=== PATIENT | female | born 1950 | race Caucasian/White ===

== ENCOUNTER 2018-05-12 12:13 | Inpatient (IN) | payer MEDICARE, BC ==
[2018-05-12 12:56] LABS: #Eosinphils 0.5 thou/uL (0.0-0.7); #Lymphocytes 2.8 thou/uL (1.20-3.40); #Monocytes 0.7 thou/uL (0.11-0.59); %Basophils 0.2 % (0.0-1.0); %Eosinophils 4.7 % (0.0-10.0); %Lymphocytes 25.2 % (21.0-51.0); %Monocytes 6.3 % (0.0-10.0); %Neutrophils 63.7 % (42.0-75.0); Hemoglobin 14.7 g/dL (12.0-16.0); Mean Corpuscular HGB CONC 33.5 g/dL (32.0-36.0); Mean Corpuscular Hemoglobin 31.6 pg (27.0-31.0); Mean Corpuscular Volume 94.3 fL (78.0-98.0); Mean Platelet Volume 7.9 fL (7.4-10.4); Platelet Count 272 thou/uL (130-400); RBC Distribution Width 11.1 % (11.5-14.5); Red Blood Cell (RBC) Count 4.66 mill/uL (4.20-5.40); White Blood Cell (WBC) Count 10.9 thou/uL (4.8-10.8)
[2018-05-12 13:16] LABS: ALT (SGPT) 18 U/L (8-55); AST (SGOT) 19 U/L (5-34); Albumin 3.8 g/dL (3.4-4.8); Alkaline Phosphatase 85 U/L (40-150); Anion Gap 14 mmol/L (10-20); BUN (Urea Nitrogen) 17 mg/dL (9.8-20.1); Bilirubin, Total 0.5 mg/dL (0.2-1.2); CK (CPK) 100 U/L (29-168); Calc. Creatinine Clearance 0 mL/min (70-130); Calcium 9.4 mg/dL (7.8-10.44); Carbon Dioxide 23 mmol/L (23-31); Chloride 105 mmol/L (98-107); Estimated GFR-MDRD 65; Glucose 107 mg/dL (80-115); Potassium 3.8 mmol/L (3.5-5.1); Protein, Total 7.8 g/dL (6.0-8.3); Sodium 138 mmol/L (136-145)
[2018-05-12] MEDS ORDERED: Nitroglycerin 2% Ointment 1 INCH/1 GM Packet ONE (13:18)
[2018-05-12 13:21] LABS: CKMB 2.4 ng/mL (0-6.6); Troponin I Less than 0.010 ng/mL (< 0.028)
--- NOTE | 2018-05-12 13:29 | RAD ---
PORTABLE CHEST 1 VIEW: Date: 05/12/18 Time: 1229 hours HISTORY: Dyspnea. Cough. FINDINGS: Comparison made with exam of 01/09/14. The heart size is borderline. No lobar consolidation, pneumothoraces, gema pulmonary edema, or pleur al effusions are seen. IMPRESSION: No acute process. POS: [facility]
[2018-05-12] MEDS ORDERED: methylPREDNISolone Sod Succ/PF 125 MG/2 ML VIAL ONE (14:05)
[2018-05-12] MEDS ORDERED: cefTRIAXone\\ROCEPHIN 1 GM VIAL ONE (14:06)
[2018-05-12] MEDS ORDERED: Azithromycin 500 MG VIAL ONE (14:07)
--- NOTE | 2018-05-12 14:27 | ULT ---
LEFT LOWER EXTREMITY VENOUS DOPPLER ULTRASOUND: Date: 05/12/18 HISTORY: 68-year-old presents with a history of left lower extremity swelling. History of shortness of breath. FINDINGS: Multiple longitudinal and transverse images of the and left lower extremity venous system obtained us ing a multihertz linear array transducer. Real-time, color flow, and spectral waveform Doppler analys is demonstrates no evidence of acute or old clot seen in the left common femoral, superficial femoral , femoral profunda, popliteal, posterior tibial vein, and post-trifurcation vein. The left greater sa phenous vein is also patent. IMPRESSION: No evidence of left lower extremity deep venous thrombosis. POS: [facility]
--- NOTE | 2018-05-12 15:42 | HP ---
PRIMARY CARE PHYSICIAN: Gabino Lovelace M.D. REASON FOR ADMISSION: Acute hypoxic respiratory failure. HISTORY OF PRESENT ILLNESS: A 68-year-old female who has underlying history of hypertension who pres ented to emergency room for evaluation of dyspnea on exertion for about 2 months. Patient reports th at she was initially experiencing dyspnea on exertion. She was feeling intermittent wheezing. Whene landon she walks or do little faster activity, then she was getting out of breath. She has to slow down to catch up with her dyspnea. Initially, the patient reports that she started feeling a little bit better. She did not see her primary care physician. She did not put any medical attention. She was not taking any medication, but with little pace, she was getting better, but day by day, her conditi on was getting more worse. About 1 month ago, the patient's one family member moved to her house and she had 2 cats and she was putting some sprays in her home and that fume was exposed to patient as well. The patient tells me t hat since then her condition gotten more and more worse and she is feeling downhill. She is not able to lie down flat during nighttime, because of shortness of breath and even after walking a few steps , she gets out of breath. She can hear her own wheezing. She denies any upper respiratory infection s. She denies any sick exposures. She denies any viral infections. She denies any lower extremity pitting edema. She denies any chest pain, palpitation, but she feels sometimes tightness with the sh ortness of breath. She denies any unusual chemical exposure other than sprays at her home. She denies any recent travel . She denies any calf tenderness. She denies any pleurisy. She denies any cough productive of yell owish sputum. She denies any fever or chills. In the emergency room, the patient was evaluated and her routine blood test was completely unremarkab le. She had a lower extremity ultrasound which was also negative for any DVT. Her chest x-ray was a lso normal. Cardiac enzymes and BNP was also normal. In the emergency room, the patient's oxygen saturation was 88% on room air. She was wheezing all ove r her lung field. In the emergency room, she was treated with Rocephin, azithromycin, DuoNeb therapy , Solu-Medrol 125 mg, nitropatch was applied and DuoNeb therapy was given. Subsequently, we decided to keep this patient in hospital for further evaluation and treatment. ALLERGIES: FISH CONTAINING PRODUCTS, NAPROXEN and SHELLFISH. CURRENT HOME MEDICATIONS: Aspirin 81 mg p.o. daily, atenolol 75 mg p.o. daily, enalapril 10 mg twice daily, gabapentin 800 mg 4 times daily. REVIEW OF SYSTEMS: The following complete review of systems was negative, unless otherwise mentioned in the HPI or below: Constitutional: Weight loss or gain, ability to conduct usual activities. Skin: Rash, itching. Eyes: Double vision, pain. ENT/Mouth: Nose bleeding, neck stiffness, pain, tenderness. Cardiovascular: Palpitations, dyspnea on exertion, orthopnea. Respiratory: Shortness of breath, wheezing, cough, hemoptysis, fever or night sweats. Gastrointestinal: Poor appetite, abdominal pain, heartburn, nausea, vomiting, constipation, or diarr hea. Genitourinary: Urgency, frequency, dysuria, nocturia. Musculoskeletal: Pain, swelling. Neurologic/Psychiatric: Anxiety, depression. Allergy/Immunologic: Skin rash, bleeding tendency. Please see my HPI for pertinent positive and negative. All other review of systems reviewed and nega tive except as mentioned in the HPI. PAST MEDICAL HISTORY: Hypertension, dyslipidemia, chronic low back pain, obesity. PAST SURGICAL HISTORY: Back surgery x4 with laminectomy, cholecystectomy, appendicectomy, tubal liga tion. PAST PSYCHIATRIC HISTORY: Anxiety and depression. SOCIAL HISTORY: Patient lives at home. She is a former smoker. She quit smoking in 2011. No histo ry of current alcohol, tobacco or other illicit drug abuse. FAMILY HISTORY: No strong family history of premature coronary artery disease, stroke or cancer. EMERGENCY ROOM COURSE: Patient is given Rocephin, azithromycin, DuoNeb therapy, Solu-Medrol 125 mg, nitropatch. PHYSICAL EXAMINATION: VITAL SIGNS: Currently in the emergency room, blood pressure 161/78, pulse 80, respiratory rate 20, temperature 98.2, saturation 95% on room air, weight 127.1 kilograms. GENERAL: Patient is currently alert, awake, mild respiratory distress. HEENT: Head: Normocephalic, atraumatic. Eyes: Pupils round, reactive to light. Extraocular muscl e intact. ENT: Oropharynx within normal limits. Moist mucous membranes. No oral lesion, no pharyn geal erythema, no exudate. NECK: Supple, no JVD, no thyromegaly, no carotid bruit, no jugular venous distention. LUNGS: Bilateral end expiratory wheezing heard, no rales, no accessory muscles of respiration in use . CARDIAC: S1, S2 regular. No murmur, no gallop, no rub. ABDOMEN: Soft, obesity present. Bowel sounds present, nontender, nondistended. No organomegaly, no mass, no suprapubic tenderness. BACK: Unremarkable, no CVA tenderness. EXTREMITIES: Upper extremity, passive movement of all joints are normal. Lower extremity, bilatera l lower extremity nonpitting edema noted. Good distal pulsation. SKIN: No skin rash. HEMATOLOGIC: No lymphadenopathy. NEUROLOGIC: Nonfocal examination. IMAGING: EKG showing normal sinus rhythm, nonspecific ST-T changes, LVH. Chest x-ray showing cardio megaly, but no acute cardiopulmonary process. Ultrasound negative for DVT for left lower extremity. ASSESSMENT AND PLAN: 1. Dyspnea on exertion. This patient has a history of dyspnea for about 2 months. Currently, chest x-ray is not showing any congestion. Her BNP is normal. The patient's respiratory distress has got ten worse with exposure to fumes and cat. I am suspecting allergic reaction with hypersensitivity pn eumonitis versus acute bronchitis/acute asthmatic bronchitis which is gradually getting worse. 2. Acute hypoxic respiratory failure, likely due to problem #1. The patient will be given oxygen, w e are hoping that with the treatment of underlying asthmatic bronchitis, the patient's condition will improve and she will not need any oxygen therapy. 3. Acute asthmatic bronchitis. The patient will need admission because of hypoxia and gradual downh ill course, most likely allergen is the cat and fumes. The patient will need treatment with DuoNeb e very 4 hourly, Dulera 2 puffs inhalation b.i.d., Singulair 10 mg daily, Mucinex 600 mg twice daily, S mylene-Medrol 40 mg IV q.6 hourly, empiric antibiotic therapy with Rocephin 1 gram q.24 hours and Levaqu in 500 mg IV daily. Patient gets improvement and at that point, we will do pulmonary function test. 4. Hypertension. We will continue with enalapril 10 mg twice daily. We will change her atenolol to Coreg 6.25 mg p.o. b.i.d. We will add Imdur, amlodipine 10 mg p.o. daily for her blood pressure con trol. 5. Chronic low back pain. We will continue gabapentin 800 mg 4 times daily. 6. Obesity. Dietary education given. Healthy lifestyle measures discussed with the patient. 7. Deep venous thrombosis prophylaxis. Lovenox 40 mg subcu daily. 8. Gastrointestinal prophylaxis, Pepcid 20 mg p.o. b.i.d. 9. Anxiety and depression. Once we verify the patient's home medication, then we will consider star ting the medication as well. CODE STATUS: The patient is FULL CODE. The patient does not have any surrogate decision maker. Disposition plan based on clinical course. We are expecting patient's stay in hospital more than 2 m idnights. Plan of care discussed with the patient in detail.
[2018-05-12] MEDS ORDERED: Sodium Chloride 0.65% Nasal 44 ML BOT EA NARE PRN (16:18)
[2018-05-12] MEDS ORDERED: Loperamide HCl 2 MG CAP PO PRN (16:18)
[2018-05-12] MEDS ORDERED: Milk Of Magnesia 30 ML UDCUP PO PRN (16:18)
[2018-05-12] MEDS ORDERED: Artificial Tears 18 DROP/0.9 ML EA EYE PRN (16:18)
[2018-05-12] MEDS ORDERED: hydrALAZINE 20 MG/ML VIAL SLOW IVP PRN (16:18)
[2018-05-12] MEDS ORDERED: Acetaminophen 325 MG TAB PO PRN (16:18)
[2018-05-12] MEDS ORDERED: Mag-Al 1200 mg/1200 mg/30 ML UDCUP PO PRN (16:18)
[2018-05-12] MEDS ORDERED: Ondansetron ODT 4 MG TAB PO PRN (16:18)
[2018-05-12] MEDS ORDERED: Cyclobenzaprine 10 MG TAB PO PRN (16:18)
[2018-05-12] MEDS ORDERED: Senokot 8.6 MG TAB PO PRN (16:18)
[2018-05-12] MEDS ORDERED: Zolpidem Tartrate 5 MG TAB PO PRN (16:18)
[2018-05-12] MEDS ORDERED: Eucerin (Mineral Oil/Petrolatum,White) 30 gm Jar TOP PRN (16:18)
[2018-05-12] MEDS ORDERED: Diabetic Tussin 200 MG/10 ML UDCUP PO PRN (16:18)
[2018-05-12] MEDS ORDERED: Chloraseptic Spray 180 ml Bottle PO PRN (16:18)
[2018-05-12] MEDS ORDERED: Ondansetron HCl/PF 4 MG/2 ML Vial IVP PRN (16:18)
[2018-05-12] MEDS ORDERED: Loratadine 10 MG TAB PO PRN (16:18)
[2018-05-12] MEDS: Sodium Chloride 0.9% 1,000 ML IV SCH (16:51)
[2018-05-12] MEDS: Carvedilol 6.25 MG TAB PO SCH (16:52)
[2018-05-12] MEDS: Gabapentin 400 MG CAP PO SCH ×2 (16:52→20:18)
[2018-05-12 17:11] VITALS: BMI 39.4
[2018-05-12] MEDS: Mometasone/Formoterol 120 PUFF INHALER INH SCH (18:40)
[2018-05-12] MEDS: guaiFENesin ER 600 MG TAB PO SCH (20:18)
[2018-05-12] MEDS: Famotidine 20 MG TAB PO SCH (20:18)
[2018-05-12] MEDS: Montelukast Sodium 10 mg Tablet PO SCH (20:18)
[2018-05-13] MEDS: Sodium Chloride 0.9% 1,000 ML IV SCH ×3 (01:40→17:11)
[2018-05-13] MEDS ORDERED: Melatonin 3 MG TAB PO PRN (02:29)
[2018-05-13 05:14] LABS: #Basophils 0.1 thou/uL (0.0-0.2); #Lymphocytes 1.2 thou/uL (1.20-3.40); #Monocytes 0.1 thou/uL (0.11-0.59); #Neutrophils 4.7 thou/uL (1.40-6.50); %Basophils 2.4 % (0.0-1.0); %Eosinophils 0.2 % (0.0-10.0); %Lymphocytes 19.5 % (21.0-51.0); %Monocytes 0.9 % (0.0-10.0); Hemoglobin 14.1 g/dL (12.0-16.0); Mean Corpuscular HGB CONC 32.3 g/dL (32.0-36.0); Mean Corpuscular Hemoglobin 30.7 pg (27.0-31.0); Mean Platelet Volume 8.2 fL (7.4-10.4); Platelet Count 256 thou/uL (130-400); RBC Distribution Width 11.1 % (11.5-14.5); White Blood Cell (WBC) Count 6.1 thou/uL (4.8-10.8)
[2018-05-13 05:26] LABS: Anion Gap 16 mmol/L (10-20); BUN (Urea Nitrogen) 14 mg/dL (9.8-20.1); Calc. Creatinine Clearance 119 mL/min (70-130); Calcium 9.3 mg/dL (7.8-10.44); Carbon Dioxide 22 mmol/L (23-31); Chloride 105 mmol/L (98-107); Estimated GFR-MDRD 64; Glucose 167 mg/dL (80-115); Potassium 3.5 mmol/L (3.5-5.1); Sodium 139 mmol/L (136-145)
[2018-05-13] MEDS: Mometasone/Formoterol 120 PUFF INHALER INH SCH ×2 (06:34→19:10)
[2018-05-13] MEDS ORDERED: Amlodipine 10 MG TAB PO SCH (09:00)
[2018-05-13] MEDS: Carvedilol 6.25 MG TAB PO SCH ×2 (09:03→17:07)
[2018-05-13] MEDS: Enoxaparin Sodium 40 MG/0.4 ML SYRINGE SC SCH (09:03)
[2018-05-13] MEDS: Pramipexole Di-HCl 1 MG TAB PO SCH ×3 (09:03→20:20)
[2018-05-13] MEDS: guaiFENesin ER 600 MG TAB PO SCH ×2 (09:04→20:20)
[2018-05-13] MEDS: Multivit, Therapeutic 1 TAB PO SCH (09:04)
[2018-05-13] MEDS: Famotidine 20 MG TAB PO SCH ×2 (09:05→20:20)
[2018-05-13] MEDS: FLUoxetine HCl 20 MG CAP PO SCH (09:08)
--- NOTE | 2018-05-13 10:06 | PDOC.PN ---
- Subjective Encounter Start Date: 05/13/18 Encounter Start Time: 08:00 -: old records requested/rev today she feels better, less dyspnea, Patient seen and examined. No overnight events - Objective Resuscitation Status: Resuscitation Status FULL:Full Resuscitation MAR Reviewed: Yes Vital Signs & Weight: Vital Signs (12 hours) Temp Pulse Resp BP BP BP Pulse Ox 05/13/18 09:05 118/69 05/13/18 09:03 118/69 05/13/18 07:35 98.3 F 102 H 21 H 118/69 92 L 05/13/18 06:32 89 16 92 L 05/13/18 04:00 97.6 F 101 H 20 119/76 96 05/13/18 02:41 16 05/12/18 22:56 98.3 F 92 18 110/68 94 L 05/12/18 22:16 91 16 93 L Weight Weight 275 lb 1 oz I&O: 05/12/18 05/13/18 05/14/18 06:59 06:59 06:59 Intake Total 240 Balance 240 Result Diagrams: 05/13/18 04:14 05/13/18 04:14 Phys Exam - Physical Examination Constitutional: NAD HEENT: PERRLA, moist MMs, sclera anicteric Neck: no JVD, supple Respiratory: no rales, wheezing present Cardiovascular: RRR, no significant murmur, no rub Gastrointestinal: soft, non-tender, no distention, positive bowel sounds Musculoskeletal: no edema, pulses present left leg swollon more than right, Neurological: non-focal, normal sensation, moves all 4 limbs Psychiatric: normal affect, A&O x 3 Skin: no rash, normal turgor, cap refill <2 seconds Dx/Plan (1) Asthmatic bronchitis Code(s): J45.909 - UNSPECIFIED ASTHMA, UNCOMPLICATED Status: Acute (2) Dyspnea Code(s): R06.00 - DYSPNEA, UNSPECIFIED Status: Acute (3) Anxiety and depression Code(s): F41.9 - ANXIETY DISORDER, UNSPECIFIED; F32.9 - MAJOR DEPRESSIVE DISORDER, SINGLE EPISODE, UNSPECIFIED Status: Chronic (4) Chronic low back pain Code(s): M54.5 - LOW BACK PAIN; G89.29 - OTHER CHRONIC PAIN Status: Chronic (5) Dyslipidemia Code(s): E78.5 - HYPERLIPIDEMIA, UNSPECIFIED Status: Chronic (6) GERD (gastroesophageal reflux disease) Code(s): K21.9 - GASTRO-ESOPHAGEAL REFLUX DISEASE WITHOUT ESOPHAGITIS Status: Chronic (7) Hypertension Code(s): I10 - ESSENTIAL (PRIMARY) HYPERTENSION Status: Chronic (8) Obesity (BMI 30-39.9) Code(s): E66.9 - OBESITY, UNSPECIFIED Status: Chronic (9) Rhinovirus infection Code(s): B34.8 - OTHER VIRAL INFECTIONS OF UNSPECIFIED SITE Status: Acute - Plan cont current plan of care, continue antibiotics, respiratory therapy * home medication reconciled * continue duoneb, dulera, solumedrol and rocephin and levaquin * medication reviewed as below * symptomatic treatment * today check her room air oxygen saturation and Dc if more than 92% * ambulate as tolerated * do PFT before discharge if possible. Review of Systems - Review of Systems Constitutional: negative: fever, chills, sweats, weakness, malaise, other Eyes: negative: Pain, Vision Change, Conjunctivae Inflammation, Eyelid Inflammation, Redness, Other ENT: negative: Ear Pain, Ear Discharge, Nose Pain, Nose Discharge, Nose Congestion, Mouth Pain, Mouth Swelling, Throat Pain, Throat Swelling, Other Respiratory: Shortness of Breath, SOB with Excertion, Wheezing. negative: Cough , Dry, Hemoptysis, Pleuritic Pain, Sputum Cardiovascular: negative: chest pain, palpitations, orthopnea, paroxysmal nocturnal dyspnea, edema, light headedness, other Gastrointestinal: negative: Nausea, Vomiting, Abdominal Pain, Diarrhea, Constipation, Melena, Hematochezia, Other Genitourinary: negative: Dysuria, Frequency, Incontinence, Hematuria, Retention , Other Musculoskeletal: negative: Neck Pain, Shoulder Pain, Arm Pain, Back Pain, Hand Pain, Leg Pain, Foot Pain, Other Skin: negative: Rash, Lesions, Valeriano, Bruising, Other - Medications/Allergies Allergies/Adverse Reactions: Allergies Allergy/AdvReac Type Severity Reaction Status Date / Time Fish Containing Products Allergy Severe Anaphylaxis Verified 04/09/14 13:47 naproxen Allergy Anaphylaxis Verified 04/09/14 13:47 shellfish derived Allergy Anaphylaxis Verified 04/09/14 13:47 Medications: Current Medications Acetaminophen (Tylenol) 650 mg PO Q4H PRN PRN Reason: Headache/Fever or Pain Hydrocodone Bitart/Acetaminophen ([place] 5/325) 1 tab PO Q4H PRN PRN Reason: Moderate Pain (4-6) Al Hydroxide/Mg Hydroxide (Maalox) 30 ml PO Q6H PRN PRN Reason: Heartburn or Indigestion Albuterol/Ipratropium (Duoneb) 3 ml NEB [id number] PRN PRN Reason: SOB &/or Wheezing Albuterol/Ipratropium (Duoneb) 3 ml NEB [id number] [facility] Last Admin: 05/13/18 06:32 Dose: 3 ml Artificial Tears (Tears Naturale) 0 drop EA EYE PRN PRN PRN Reason: Dry Eyes Aspirin (Aspirin Chewable) 81 mg PO DAILY [facility] Last Admin: 05/13/18 09:03 Dose: 81 mg Atorvastatin Calcium (Lipitor) 10 mg PO [facility] Carvedilol (Coreg) 6.25 mg PO BID[facility] Last Admin: 05/13/18 09:03 Dose: 6.25 mg Cyclobenzaprine HCl (Flexeril) 10 mg PO TID PRN PRN Reason: Muscle Spasm Enalapril Maleate (Vasotec) 10 mg PO DAILY [facility] Last Admin: 05/13/18 09:05 Dose: 10 mg Enoxaparin Sodium (Lovenox) 40 mg SC 0900 [facility] Last Admin: 05/13/18 09:03 Dose: 40 mg Famotidine (Pepcid) 20 mg PO BID [facility] Last Admin: 05/13/18 09:05 Dose: 20 mg Fluoxetine HCl (Prozac) 40 mg PO DAILY [facility] Last Admin: 05/13/18 09:08 Dose: Not Given Guaifenesin (Mucinex) 600 mg PO Q12HR [facility] Last Admin: 05/13/18 09:04 Dose: 600 mg Guaifenesin (Robitussin Sf) 200 mg PO Q4H PRN PRN Reason: Cough Hydralazine HCl (Apresoline) 10 mg SLOW IVP Q4H PRN PRN Reason: Systolic BP > 180 Ceftriaxone Sodium 1 gm/ (Sodium Chloride) 100 mls @ 200 mls/hr IVPB 1400 [facility] Levofloxacin 500 mg/ Device 100 mls @ 100 mls/hr IVPB Q24HR [facility] Last Admin: 05/12/18 16:52 Dose: 100 mls Sodium Chloride (Normal Saline 0.9%) 1,000 mls @ 100 mls/hr IV .Q10H [facility] Last Admin: 05/13/18 01:40 Dose: Not Given Loperamide HCl (Imodium) 2 mg PO PRN PRN PRN Reason: Diarrhea/Loose Stools Loratadine (Claritin) 10 mg PO DAILYPRN PRN PRN Reason: Sinus Symptoms Magnesium Hydroxide (Milk Of Magnesium) 30 ml PO DAILYPRN PRN PRN Reason: Constipation Melatonin (Melatonin) 6 mg PO HS PRN PRN Reason: Insomnia Methylprednisolone Sodium Succinate (Solu-Medrol) 40 mg IVP Q6HR [facility] Last Admin: 05/13/18 04:11 Dose: 40 mg Mineral Oil/White Petrolatum (Eucerin Cream) 0 gm TOP BIDPRN PRN PRN Reason: Dry Skin Mometasone Furoate/Formoterol Fumar (Dulera 200 Mcg/5 Mcg Inhaler) 2 puff INH BID-RT [facility] Last Admin: 05/13/18 06:34 Dose: 2 puff Montelukast Sodium (Singulair) 10 mg PO QPM [facility] Last Admin: 05/12/18 20:18 Dose: 10 mg Multivitamins (Theragran) 1 tab PO DAILY [facility] Last Admin: 05/13/18 09:04 Dose: 1 tab Ondansetron HCl (Zofran Odt) 4 mg PO Q6H PRN PRN Reason: Nausea/Vomiting Ondansetron HCl (Zofran) 4 mg IVP Q6H PRN PRN Reason: Nausea/Vomiting Phenol (Chloraseptic [place] 180 Ml Bot) 0 ml PO PRN PRN PRN Reason: Sore Throat Pramipexole Dihydrochloride (Mirapex) 1 mg PO TID [facility] Last Admin: 05/13/18 09:03 Dose: 1 mg Senna (Senokot) 2 tab PO HSPRN PRN PRN Reason: Constipation Sodium Chloride ([place] Nasal [place] 0.65%) 0 ml EA NARE QIDPRN PRN PRN Reason: Nasal Congestion Trazodone HCl (Desyrel) 50 mg PO HS [facility]
[2018-05-13] MEDS: cefTRIAXone\\ROCEPHIN 1 GM in Sodium Chloride 0.9% 100 ML IVPB SCH (14:20)
[2018-05-13] MEDS: HYDROcodone/Acetaminophen 5/325 mg Tablet PO PRN (14:21)
[2018-05-13] MEDS: Montelukast Sodium 10 mg Tablet PO SCH (20:20)
[2018-05-13] MEDS: traZODone HCl 50 MG TAB PO SCH (20:20)
[2018-05-13] MEDS: Atorvastatin Calcium 10 MG TAB PO SCH (20:20)
[2018-05-14] MEDS: Sodium Chloride 0.9% 1,000 ML IV SCH ×2 (00:40→11:36)
[2018-05-14] MEDS: Mometasone/Formoterol 120 PUFF INHALER INH SCH ×2 (06:13→18:39)
[2018-05-14] MEDS: Enoxaparin Sodium 40 MG/0.4 ML SYRINGE SC SCH (08:28)
[2018-05-14] MEDS: Multivit, Therapeutic 1 TAB PO SCH (08:28)
[2018-05-14] MEDS: Carvedilol 6.25 MG TAB PO SCH ×2 (08:32→16:55)
[2018-05-14] MEDS: Pramipexole Di-HCl 1 MG TAB PO SCH ×3 (08:32→21:26)
[2018-05-14] MEDS: FLUoxetine HCl 20 MG CAP PO SCH ×2 (08:33→08:36)
[2018-05-14] MEDS: guaiFENesin ER 600 MG TAB PO SCH ×2 (08:33→21:26)
[2018-05-14] MEDS: Famotidine 20 MG TAB PO SCH ×2 (08:33→21:25)
[2018-05-14] MEDS: HYDROcodone/Acetaminophen 5/325 mg Tablet PO PRN ×2 (12:40→16:55)
[2018-05-14] MEDS: cefTRIAXone\\ROCEPHIN 1 GM in Sodium Chloride 0.9% 100 ML IVPB SCH (13:53)
--- NOTE | 2018-05-14 14:18 | PDOC.PN ---
- Subjective Encounter Start Date: 05/14/18 Encounter Start Time: 14:00 Subjective: f/u for asthmatic bronchitis and hypoxic resp failure. Overall feeling -: better but still requiring O2 @ 1.5L/min NC. - Objective Resuscitation Status: Resuscitation Status FULL:Full Resuscitation MAR Reviewed: Yes Vital Signs & Weight: Vital Signs (12 hours) Temp Pulse Resp BP BP Pulse Ox 05/14/18 11:45 98.3 F 100 20 158/85 H 93 L 05/14/18 10:19 100 93 L 05/14/18 08:33 146/76 H 05/14/18 08:32 146/76 H 05/14/18 08:00 91 L 05/14/18 07:25 98.2 F 103 H 22 H 146/76 H 91 L 05/14/18 06:11 105 H 14 90 L 05/14/18 04:00 98.1 F 102 H 18 143/84 H 94 L 05/14/18 02:24 102 H 12 95 Weight Weight 275 lb 1 oz I&O: 05/13/18 05/14/18 05/15/18 06:59 06:59 06:59 Intake Total 240 1680 Balance 240 1680 Result Diagrams: 05/13/18 04:14 05/13/18 04:14 Additional Labs: Microbiology 05/12/18 19:30 Nasopharyngeal swab Respiratory Panel (PCR) - Final 05/12/18 14:10 Venous blood - Right Hand Blood Culture - Preliminary NO GROWTH AT 48 HOURS 05/12/18 14:10 Venous blood - Right Hand Blood Culture - Preliminary NO GROWTH AT 48 HOURS Radiology Reviewed by me: Yes (Echo - EF 55%, mild-mod LAE) Phys Exam - Physical Examination Constitutional: NAD alert, responsive HEENT: PERRLA, sclera anicteric, oral pharynx no lesions Neck: no nodes, no JVD, supple, full ROM scattered wheezes and rhonchi S1, S2 Cardiovascular: RRR, no significant murmur, no rub, gallop Gastrointestinal: soft, non-tender, no distention, positive bowel sounds Musculoskeletal: no edema, pulses present Neurological: normal sensation, moves all 4 limbs Psychiatric: normal affect, A&O x 3 Deviation from normal: erythematous patch on dorsum or R foot, blanchable Skin: normal turgor, cap refill <2 seconds Dx/Plan (1) Acute respiratory failure with hypoxia Code(s): J96.01 - ACUTE RESPIRATORY FAILURE WITH HYPOXIA Status: Acute Comment: Continue O2 supplementation and wean as clinically indicated, ? home O2 requirement (2) Asthmatic bronchitis Code(s): J45.909 - UNSPECIFIED ASTHMA, UNCOMPLICATED Status: Acute Comment: Continue Dulera, Duonebs and Solumedrol, likely transition to Prednisone in 24h , start Omnicef 300mg BID (3) Chronic low back pain Code(s): M54.5 - LOW BACK PAIN; G89.29 - OTHER CHRONIC PAIN Status: Chronic Comment: PT evaluation for functional assessment (4) GERD (gastroesophageal reflux disease) Code(s): K21.9 - GASTRO-ESOPHAGEAL REFLUX DISEASE WITHOUT ESOPHAGITIS Status: Chronic (5) Hypertension Code(s): I10 - ESSENTIAL (PRIMARY) HYPERTENSION Status: Chronic Qualifiers: Hypertension type: essential hypertension Qualified Code(s): I10 - Essential (primary) hypertension Comment: Continue Coreg and Enalapril (6) Obesity (BMI 30-39.9) Code(s): E66.9 - OBESITY, UNSPECIFIED Status: Chronic - Plan continue antibiotics, PT/OT, social services aide, respiratory therapy, out of bed/ ambulate Stable currently -: Saline lock IVF's -: D/C Levaquin and Rocephin -: Start Omnicef 300mg BID -: OOB/ambulate with PT * Likely home in 24
[2018-05-14] MEDS: Cefdinir 300 MG CAP PO SCH (21:25)
[2018-05-14] MEDS: Atorvastatin Calcium 10 MG TAB PO SCH (21:26)
[2018-05-14] MEDS: traZODone HCl 50 MG TAB PO SCH (21:26)
[2018-05-14] MEDS: Montelukast Sodium 10 mg Tablet PO SCH (21:26)
[2018-05-15] MEDS: HYDROcodone/Acetaminophen 5/325 mg Tablet PO PRN ×2 (00:32→08:32)
[2018-05-15] MEDS: Mometasone/Formoterol 120 PUFF INHALER INH SCH (06:37)
[2018-05-15] MEDS: Cefdinir 300 MG CAP PO SCH (08:24)
[2018-05-15] MEDS: Pramipexole Di-HCl 1 MG TAB PO SCH ×2 (08:25→15:54)
[2018-05-15] MEDS: FLUoxetine HCl 20 MG CAP PO SCH (08:26)
[2018-05-15] MEDS: guaiFENesin ER 600 MG TAB PO SCH (08:26)
[2018-05-15] MEDS: Multivit, Therapeutic 1 TAB PO SCH (08:27)
[2018-05-15] MEDS: Famotidine 20 MG TAB PO SCH (08:27)
[2018-05-15] MEDS: Carvedilol 6.25 MG TAB PO SCH ×2 (08:28→15:54)
[2018-05-15] MEDS: Enoxaparin Sodium 40 MG/0.4 ML SYRINGE SC SCH (08:29)
[2018-05-15 11:15] VITALS: TEMP 982
--- NOTE | 2018-05-15 13:43 | DIS ---
DATE OF ADMISSION: 05/12/2018 DATE OF DISCHARGE: 05/15/2018 DISCHARGE DIAGNOSES: 1. Acute hypoxemic respiratory failure secondary to #2. 2. Asthmatic bronchitis. 3. Chronic low back pain, stable. 4. Gastroesophageal reflux disease. 5. Hypertension. 6. Obesity. CONSULTATIONS: None. PERTINENT LABORATORY DATA AND IMAGING DATA: Complete metabolic profile within normal limits. BNP 14 .3. CBC showed a white blood cell count ranging between 6.1-10.9. Blood cultures x2 dated 8 showed no growth at 48 hours. Respiratory panel dated 05/12/2018 positive for rhinovirus. Left lo wer extremity venous Doppler study dated 05/12/2018 showed no evidence for DVT. Portable chest x-ray dated 05/12/2018 showed no acute cardiopulmonary process. A 2D transthoracic echocardiogram dated showed ejection fraction of 55%-60%. Mild to moderate left atrial enlargement. HOSPITAL COURSE: Patient was admitted to the medical floor after initially presenting with dyspnea o n exertion with associated hypoxemia. The patient was diagnosed with asthmatic bronchitis and placed on bronchodilator therapy as well as IV Solu-Medrol. The patient was slow to clinically improve wit h pulmonary supportive measures, requiring DuoNeb therapy in conjunction with Dulera, oxygen suppleme ntation and IV antibiotics. Patient underwent respiratory virus panel showing rhinovirus as stated p reviously. The patient continued on IV antibiotic therapy, transitioning to oral Omnicef after stabi lization. The patient was noted with oxygen requirement of 2 liters per minute by nasal cannula and will receive a home oxygen prescription at discharge. The patient was noted with room air O2 saturat ions at rest between 86%-89%. Overall, patient did remain clinically stable, tolerating regular oral intake with stable vital signs. I have examined the patient at the time of discharge and discussed followup instructions. The patient verbalizes understanding and agreement and ready for discharge . DISCHARGE MEDICATIONS: 1. ProAir HFA 2 inhalations t.i.d. p.r.n. 2. Tenormin 50 mg p.o. daily. 3. Enalapril 10 mg p.o. daily. 4. Pepcid 40 mg p.o. daily. 5. Prozac 40 mg p.o. daily. 6. Lovastatin 40 mg p.o. daily. 7. Multivitamin 1 tab p.o. daily. 8. Omeprazole 40 mg p.o. daily. 9. Mirapex 1 mg p.o. t.i.d. 10. Trazodone 50 mg p.o. at bedtime. 11. Omnicef 300 mg p.o. b.i.d. x7 days. 12. DuoNeb 3 mL nebulized q.6 hours p.r.n. 13. Dulera 200/5 mcg 2 puffs inhaled b.i.d. 14. Prednisone 10 mg 2 tabs p.o. b.i.d. x3 days, followed by 3 tabs p.o. daily x 3 days, followed by 2 tabs p.o. daily x 3 days, followed by 1 tab p.o. daily x3 days. FOLLOWUP: The patient will follow up with Dr. Gabino Lovelace within 7 days of discharge. CONDITION ON DISCHARGE: Stable. ACTIVITY: Ad noni. SPECIAL INSTRUCTIONS: The patient will receive home health services through [facility] after discharge. The patient will continue on home oxygen at 2 liters per minute by nasal cannula continu ously. DIET: Heart healthy. CODE STATUS: FULL. DISPOSITION: Home with [facility] on 05/15/2018. Total time in preparing and coordinating discharge is 36 minutes.
[2018-05-15 15:55] VITALS: BP 178/90
== END 2018-05-15 16:43 | disposition home or self-care (01) | DRG 189 ==
LOC: ERS 12:13 → T4-A 14:09
PROVIDERS: ADMIT Internal Medicine; ATTEND Internal Medicine
DX: J96.01 Acute respiratory failure with hypoxia (principal); J45.909 Unspecified asthma, uncomplicated; I10 Essential (primary) hypertension; E78.5 Hyperlipidemia, unspecified; M54.9 Dorsalgia, unspecified; G89.29 Other chronic pain; E66.9 Obesity, unspecified; Z87.891 Personal history of nicotine dependence; B34.8 Other viral infections of unspecified site; Z88.8 Allergy status to other drugs, medicaments and biological substances; Z91.013 Allergy to seafood; Z79.899 Other long term (current) drug therapy; Z79.82 Long term (current) use of aspirin; F32.9 Major depressive disorder, single episode, unspecified; F41.9 Anxiety disorder, unspecified; Z68.39 Body mass index [BMI] 39.0-39.9, adult; K21.9 Gastro-esophageal reflux disease without esophagitis
CPT/HCPCS: 36415; 71045; 80048; 80053; 82553; 83880; 84484; 85025; 87040; 87633; 87798; 93005; 93306; 94640; 96365; 96367; 96375; A4216; G8978-GP-CL; G8979-GP-CK; J0456; J0696; J1650; J1956; J2920; J2930; J7050; J7620

== ENCOUNTER 2019-07-06 16:00 | Inpatient (IN) | payer MEDICARE, BC ==
[~2019-07-06 16:00] MED LIST: Glycopyrrolate 0.2 MG/ML 5 ML SYRINGE ONE; Iopamidol-370 76% 500 ML 1 ML ONE; Lidocaine 1% PF 5 ML VIAL ONE; Ondansetron PF 4 MG/2 ML Vial ONE; PHENYLEPHRINE-NS 100 MCG/ML 10 ML SYRINGE ONE; PROPOFOL 200 MG/20 ML VIAL ONE; Rocuronium Bromide 10 MG/ML (10ML VIAL) ONE; Succinylcholine Chloride 20 MG/ML 10 ml SYRINGE FS ONE
--- NOTE | 2019-07-06 16:39 | RAD ---
XR Chest 1 View Portable History: Chills. Malaise. Tachypnea Comparison: Radiograph 05/12/2018 Findings: Lungs are clear. No pneumothorax. No effusion. No acute osseous abnormality. Impression: No acute intrathoracic abnormality.
[2019-07-06 17:20] LABS: ALT (SGPT) 19 U/L (8-55); AST (SGOT) 23 U/L (5-34); Albumin 3.7 g/dL (3.4-4.8); Alkaline Phosphatase 90 U/L (40-110); Anion Gap 15 mmol/L (10-20); BUN (Urea Nitrogen) 15 mg/dL (9.8-20.1); Bilirubin, Total 0.7 mg/dL (0.2-1.2); Calc. Creatinine Clearance 0 mL/min (70-130); Calcium 9.2 mg/dL (7.8-10.44); Carbon Dioxide 25 mmol/L (23-31); Chloride 106 mmol/L (98-107); Estimated GFR-MDRD 74; Globulin 3.8 g/dL (2.4-3.5); Glucose 124 mg/dL (80-115); Potassium 3.8 mmol/L (3.5-5.1); Protein, Total 7.5 g/dL (6.0-8.3); Sodium 142 mmol/L (136-145)
[2019-07-06 17:34] LABS: #Eosinphils 0.1 thou/uL (0.0-0.7); #Lymphocytes 2.6 thou/uL (1.20-3.40); #Monocytes 0.9 thou/uL (0.11-0.59); #Neutrophils 9.6 thou/uL (1.40-6.50); %Basophils 0.3 % (0.0-1.0); %Eosinophils 1.1 % (0.0-10.0); %Lymphocytes 19.3 % (21.0-51.0); %Neutrophils 72.3 % (42.0-75.0); Mean Corpuscular HGB CONC 34.5 g/dL (32.0-36.0); Mean Corpuscular Hemoglobin 32.8 pg (27.0-31.0); Mean Corpuscular Volume 95.1 fL (78.0-98.0); Platelet Count 293 thou/uL (130-400); RBC Distribution Width 11.8 % (11.5-14.5); Red Blood Cell (RBC) Count 4.57 mill/uL (4.20-5.40); White Blood Cell (WBC) Count 13.2 thou/uL (4.8-10.8)
[2019-07-06] MEDS ORDERED: Azithromycin 500 MG VIAL ONE (17:55)
[2019-07-06] MEDS ORDERED: cefTRIAXone\\ROCEPHIN 2 GM VIAL ONE (17:55)
[2019-07-06 17:59] LABS: Bacteria/HPF 4+ HPF (None Seen); Bilirubin Negative (Negative); Blood, Urine Negative (Negative); Clarity Turbid (Clear); Glucose, Urine (Dipstick) Normal (Negative); Leukocyte 250 Leu/uL (Negative); Nitrite Negative (Negative); Protein, Urine (Dipstick) 30 mg/dL (Neg-Trace); RBC/HPF 0-3 HPF (0-3); Squamous Epithelial 0-3 HPF (0-3); Urobilinogen Normal mg/dL (Less than 2); WBC/HPF 21-50 HPF (0-3)
--- NOTE | 2019-07-06 18:59 | CT ---
CTA Angio Chest W WO Con History: Dyspnea and tachycardia. Comparison: Radiograph same day Findings: CT angiogram chest performed after the intravenous administration of contrast. 3-D renderin g provided. There is a nodule in the left lobe of thyroid. The esophagus is distended with fluid and ingested mat erial. Evaluation for distal embolism is limited due to the delayed phase of contrast. No proximal segmental pulmonary arterial filling defect. No pericardial effusion. Limited evaluation of the upper abdomen is unremarkable. Mild atelectasis in the lung bases. No pneumothorax. No effusion. No airspace consolidation. There is a right middle lobe pulmonary nodule measuring 4 mm. Impression: 1. Within the limits of this exam no pulmonary embolism. 2. Marked and distention of the fluid and debris-filled esophagus. Nonemergent endoscopic evaluation recommended to evaluate for obstructive process. 3. No evidence for pneumonia.
[2019-07-06] MEDS ORDERED: hydrALAZINE 20 MG/ML VIAL ONE (20:16)
[2019-07-07] MEDS ORDERED: SUGAMMADEX SODIUM 500 MG/5 ML VIAL ONE ×2 (00:29)
[2019-07-07] MEDS ORDERED: Ondansetron HCl/PF 4 MG/2 ML Vial IVP PRN (00:46)
[2019-07-07] MEDS ORDERED: HYDROcodone/Acetaminophen 5/325 mg Tablet PO PRN ×2 (01:55)
[2019-07-07] MEDS ORDERED: Sodium Chloride 0.9% 1,000 ML IV SCH (01:55)
[2019-07-07] MEDS ORDERED: Ondansetron ODT 4 MG TAB SL PRN (01:55)
[2019-07-07] MEDS ORDERED: Ondansetron PF 4 MG/2 ML Vial IVP PRN (01:55)
[2019-07-07] MEDS ORDERED: Acetaminophen 325 MG TAB PO PRN (01:55)
[2019-07-07] MEDS: Dextrose 5 % And 0.9 % NaCl 1,000 ML IV SCH ×2 (02:19→15:52)
--- NOTE | 2019-07-07 02:27 | HP ---
PRIMARY CARE PHYSICIAN: The patient currently does not have a primary care physician. CHIEF COMPLAINT: Choking spell. HISTORY OF PRESENT ILLNESS: The history of present illness is very limited as the patient is being seen in the PACU, and she says that she is a bit groggy and cannot really remember all the details but Ms. Gonzalez is a 69-year-old female, who has a history of hypertension and depression. She says that she has been having difficulty with swallowing for few weeks now and earlier on the day of admission, she had a fairly severe choking episode and then following this was short of breath. For this reason, she came to the emergency room for evaluation. Chest x-ray was done, which was essentially negative. Then, a CT angiogram was performed and it demonstrated no evidence of PE nor infiltrate, but a severely dilated esophagus and for this reason, road contractor was consulted and she was taken emergently to upper endoscopy, where she had a procedure to disimpact the esophagus, which took approximately 3 hours and she is being admitted for observation following this. Other than that, the patient says she has a little bit of discomfort in her abdomen and chest, but otherwise no complaints. She denies feeling short of breath. No nausea, no vomiting, and no other symptoms. REVIEW OF SYSTEMS: Mostly unobtainable due to the patient being groggy. PAST MEDICAL HISTORY: Taken from prior records and was gone over with the patient and includes past medical history significant for hypertension, mitral valve disease, and depression. PAST SURGICAL HISTORY: She has had back surgery x4, appendectomy, cholecystectomy, and bilateral tubal ligation. ALLERGIES: INCLUDE NAPROSYN AND SHELLFISH. SOCIAL HISTORY: She is a former smoker. Denies any alcohol use. She is , has one son, Too, who is her surrogate decision maker. She would like to be a full code. FAMILY HISTORY: Significant for a sister, who had aneurysm. MEDICATIONS: Include, 1. Aspirin. 2. Enalapril 10 mg twice daily. 3. Gabapentin 800 mg q.i.d. PHYSICAL EXAMINATION: GENERAL: She is alert and oriented. She appears to be in no acute distress. VITAL SIGNS: Blood pressure initially was 200 systolic and it has come down to 179/93, heart rate 108, and respiratory rate of 32. HEENT: Pupils are equal, round, and reactive. Extraocular muscles are intact. Her sclerae are anicteric. Throat, no erythema. No exudates. NECK: No adenopathy, no bruits. LUNGS: She has some coarse breath sounds, but no wheezing or rales. CARDIOVASCULAR: Heart tones are bit distant, but she has a normal S1 and S2. There is no S3 or S4. No murmurs, clicks, or rubs. ABDOMEN: Obese. It is soft, nontender, and nondistended. Positive for bowel sounds. No rebound. No guarding. No organomegaly. EXTREMITIES: She has no edema. No calf tenderness. No joint effusions. NEUROLOGIC: Nonfocal. SKIN AND INTEGUMENT: No skin changes. No rash. LABORATORY DATA: White blood cell count is 13.2, hemoglobin is 15, hematocrit is 43.4, and platelet count is 293. Sodium 142, potassium 3.8, chloride is 106, CO2 is 25, BUN of 15, creatinine 0.77, and glucose is 124. Lactic acid 1.2. Liver function tests are negative. Urinalysis shows trace ketones, 250 leukocyte esterase, wbc's are 21 to 50, and bacteria 4+. ASSESSMENT: 1. This is a 69-year-old female, who presented to the emergency room with a choking episode and was found to have a food impaction in her esophagus, which was fairly severe, requiring over 3 hours to disimpact. She will be admitted to telemetry and started on empiric antibiotics to cover for aspiration. She will be placed on IV proton pump inhibitor as well as Solu-Medrol. Due to the length of time that required to disimpact the esophagus, there could be some esophageal wall irritation. 2. Hypertension. Her blood pressure is elevated. This could be due to her symptomatology and the recent procedure. Since she is n.p.o., we will be treating her with p.r.n. IV medications. 3. She will be placed on DVT and GI prophylaxis and further recommendations to follow. Job ID: [id number]
[2019-07-07] MEDS: Piperacillin/Tazobactam 3.375 GM in Sodium Chloride 0.9% 100 ML IVPB SCH ×4 (03:00→21:15)
[2019-07-07 03:13] VITALS: BMI 39.2
[2019-07-07] MEDS: hydrALAZINE 20 MG/ML VIAL SLOW IVP PRN (04:19)
[2019-07-07 05:40] LABS: #Lymphocytes 2.3 thou/uL (1.20-3.40); #Monocytes 0.6 thou/uL (0.11-0.59); %Basophils 0.1 % (0.0-1.0); %Eosinophils 0.1 % (0.0-10.0); %Lymphocytes 16.8 % (21.0-51.0); %Monocytes 4.2 % (0.0-10.0); %Neutrophils 78.8 % (42.0-75.0); Hemoglobin 13.7 g/dL (12.0-16.0); Mean Corpuscular HGB CONC 34.2 g/dL (32.0-36.0); Mean Corpuscular Hemoglobin 32.4 pg (27.0-31.0); Mean Corpuscular Volume 94.5 fL (78.0-98.0); Platelet Count 298 thou/uL (130-400); RBC Distribution Width 11.9 % (11.5-14.5); Red Blood Cell (RBC) Count 4.22 mill/uL (4.20-5.40); White Blood Cell (WBC) Count 13.9 thou/uL (4.8-10.8)
[2019-07-07 05:58] LABS: Anion Gap 11 mmol/L (10-20); BUN (Urea Nitrogen) 12 mg/dL (9.8-20.1); Calc. Creatinine Clearance 136 mL/min (70-130); Calcium 8.4 mg/dL (7.8-10.44); Carbon Dioxide 23 mmol/L (23-31); Chloride 110 mmol/L (98-107); Estimated GFR-MDRD 76; Glucose 141 mg/dL (80-115); Potassium 3.2 mmol/L (3.5-5.1); Sodium 141 mmol/L (136-145)
[2019-07-07] MEDS: methylPREDNISolone Sod Succ 40 MG VIAL IVP SCH ×3 (06:03→21:17)
[2019-07-07] MEDS: Enoxaparin Sodium 40 MG/0.4 ML SYRINGE SC SCH (08:37)
[2019-07-07] MEDS ORDERED: Potassium Chloride 40 MEQ in Sodium Chloride 0.9% 250 ML 250 ML IVPB SCH (08:45)
[2019-07-07] MEDS ORDERED: Pantoprazole 40 MG VIAL IVP SCH (09:00)
--- NOTE | 2019-07-07 10:52 | CON ---
DATE OF CONSULTATION: 07/06/2019 REASON FOR CONSULTATION: Dysphagia, food impaction of the esophagus. HISTORY OF PRESENT ILLNESS: Ms. Belem Gonzalez is a very pleasant 69-year-old female with history of esophageal stricture from before. The patient has had a food impaction more than 10 years ago. She has had esophageal stricture off and on with dysphagia to solid food. She has seen Dr. Barnett at [facility] 2 years ago and underwent EGD and dilation. She had done well after dilation. She has mild acid reflux off and on. The patient was eating yesterday and the food got hung up in the esophagus. She tried drinking water, but the water kept coming up. She is also spitting up some mucus. She was unable to take any liquids and she came to the ER almost 24 hours after the food impaction. In the ER, she had CAT scan and CAT scan does show meat impaction of the esophagus at the mid esophageal level. The patient actually appears very comfortable. She is not coughing or choking and not spitting of any mucus. She had no painful swallowing. Does not have any chest pain. The patient has been seen by Dr. Monge and had an evaluation done. There was some question of some pulmonary infiltrate, possible bronchitis, and plan is being made to hospitalize the patient. The patient has no relevant history. ALLERGIES: NONE. SOCIAL HISTORY: The patient is a past smoker; however, she stopped more than 10 years ago. Does not drink alcohol. No history of drug abuse. MEDICAL ILLNESSES: 1. Hypertension. 2. Chronic acid reflux. Denies history of any heart disease. No diabetes. No chronic lung disease from before. She has no family doctor, does not see anybody at the present time. PAST SURGICAL HISTORY: 1. Back surgery more than 40 years ago. 2. Appendectomy. 3. Cholecystectomy. 4. EGD and dilation 2 years ago. FAMILY HISTORY: Mother had breast cancer. No family history of any other cancer. No COPD in the family. No diabetes. No stroke. No heart disease. MEDICATIONS: Reviewed. REVIEW OF SYSTEMS: A 10-point system reviewed. HEAD: No chronic headache. No dizziness. EYES: No impaired vision. No diplopia. EARS: No hearing loss. No discharge. No bleeding. NOSE: No nosebleed. THROAT: No sore throat. No painful swallowing. NECK: No stiffness or pain. LUNGS: Has coughing and spitting mucus yesterday. No fever. No hemoptysis. No dyspnea. CARDIOVASCULAR: No chest pain. No palpitation. No dyspnea, orthopnea, or PND. GI: No abdominal pain. No nausea, no vomiting. GENITOURINARY: No hematuria. No dysuria. MUSCULOSKELETAL: Not known. NEUROENDOCRINE: Not known. NEUROPSYCHIATRY: Not known. PHYSICAL EXAMINATION: GENERAL: She is obese, appears comfortable. VITAL SIGNS: Pulse is 109, blood pressure 130/78. HEENT: Conjunctivae are clear. NECK: Supple. No adenitis or thyromegaly noted. CARDIOVASCULAR: First and second heart sounds normal. LUNGS: Have few scattered rhonchi. ABDOMEN: Soft. Abdomen is nondistended. Abdomen is nontender. No organomegaly. No masses. Bowel sounds normal. EXTREMITIES: Reveal no edema. LABORATORY DATA: CBC; WBC 13,200, hemoglobin 15, hematocrit 43.4, MCV 92.1, platelet count 293,000, polymorphs 72, lymphocytes 19. Chem 7 is normal. BUN is 15, creatinine 0.77, glucose 124, and calcium 9.2. Liver function tests are normal. Albumin is 3.7, globulin 3.8. The patient had a chest CAT scan, CT angiogram. There is no evidence of pulmonary embolism. She has markedly distant esophageal lumen with debris. There is no pneumonia. Chest x-ray is actually normal. IMPRESSION: 1. A 69-year-old female, who presents with dysphagia, food impaction. She has similar episodes in the past. She underwent EGD and dilation about [address] Barnett. The patient comes in with complaint of food impaction. 2. Obesity. 3. Hypertension. 4. Previous appendectomy and cholecystectomy. 5. Previous back surgery. PLAN: EGD and removal of foreign body. I did see the patient in the ER, I explained to her about the procedure in detail. I explained that she will put to sleep and a scope will be passed down to the esophagus to try to take it out. Risks like bleeding, perforation, aspiration, and sepsis explained. She fully understood the procedure. I will plan for EGD and removal of foreign body as soon as possible tonight. Job ID: [id number]
[2019-07-07] MEDS ORDERED: MD-Gastroview 120 ML BOT ONE (11:40)
[2019-07-07] MEDS ORDERED: Metoprolol Tartrate 5 MG/5 ML VIAL IVP SCH (12:00)
--- NOTE | 2019-07-07 14:01 | OP ---
DATE OF PROCEDURE: 07/06/2019 STARTING TIME: 9:15 p.m., 07/06/2019. PROCEDURE COMPLETED: 12:15 a.m., 07/07/2019. DURATION OF PROCEDURE: 3 hours. PREOPERATIVE DIAGNOSIS: Foreign body impaction in esophagus. POSTOPERATIVE DIAGNOSES: 1. Foreign body, meat piece impaction in esophagus. 2. Esophageal stricture at the distal esophagus. PROCEDURE PERFORMED: Esophagogastroduodenoscopy. FINDINGS: At the EGD, the patient was found to have entire esophagus full of meat starting just below the GE junction and going just below the upper esophageal sphincter and going all the way to the lower esophagus. It was very time consuming in the patient's procedure. It took approximately 2 to 3 hours to open the esophageal lumen and clear the meat piece. DESCRIPTION OF PROCEDURE: The patient was intubated and was given sedation by Anesthesia Department. A bite block was placed. A Pentax video gastroscope under direct vision passed down the oropharynx, past the upper esophageal sphincter into the esophagus. The patient had a very large piece of soggy meat right below the esophageal sphincter. The patient appears to have a meat piece filling the entire esophagus. The meat is very soggy and difficult really to grasp the whole piece. We then tried to exacerbate and break it into multiple fibers. Initially, multiple passes were made to try to get the meat. Several meat pieces were removed. Subsequently, we realized it is going to be really time consuming and I had to pass the tube over the scope into the esophagus. The tube would easily go back and forth multiple times. A tripod forceps was used to remove bit by bit. At the end of the procedure, most of the meat was debulked. Subsequently, I was able to push what was left into the stomach with mild resistance. Also, at one time, an attempt was made to put a balloon just pass the impaction and tried to release the balloon to replete out which was not successful. There was some small piece of meat left and it appears to pass by itself. I was able to get the scope into the stomach and the patient appears to have had a stricture at the distal esophagus of the GE junction and the end of the procedure did include an examination and I do not see any crepitus or subcutaneous emphysema. The stomach decompressed and tube removed. I did talk to Dr. Frank Terry, the hospitalist to admit the patient for observation overnight. RECOMMENDATIONS: 1. We will keep her n.p.o. 2. Start her on IV fluids. 3. Consider broad spectrum antibiotics and also possibly Solu-Medrol 20 mg every 8 hours because the patient would have severe edema of the vocal cords and possibly pain because of multiple passes and large . Job ID: [id number]
--- NOTE | 2019-07-07 14:45 | PRG ---
DATE OF SERVICE: 07/07/2019 SUBJECTIVE: This is a 69-year-old female seen last night in the ER because of food impaction in esophagus. The patient ate some meat on Sunday, but did not come back until Sunday night. She underwent EGD. She had a large amount of food bolus in the esophagus. The entire esophagus was filled with soft meat. meat piece. She had done well overnight and she has no complaint except for some sore throat and painful swallowing. She is n.p.o. She offers no complaints. She is on broad-spectrum antibiotic and also tissue swelling. PHYSICAL EXAMINATION: GENERAL: She is obese, appears comfortable. Afebrile. Pulse is 110 and blood pressure is 150/93. HEENT: Conjunctivae are clear. NECK: Supple. No crepitus or any subcutaneous emphysema noted. CARDIOVASCULAR: First and second heart sounds are normal. LUNGS: Clear to auscultation. ABDOMEN: Soft. Abdomen is nontender. No organomegaly. No masses. LABORATORY DATA: WBC 13,900, hemoglobin 13.7, hematocrit 39.9, MCV 94.5, platelet count is 290,000, polymorphs 78, lymphocytes 16. Chemistry panel normal except for glucose of 141 and potassium 3.2. PLAN: Gastrografin swallow today. If there is no leak or any other problems, start feeding later on today. Dr. Tai Lubin is covering me from today until 22 of July. If there are any questions, please contact Dr. Tai Lubin. Job ID: [id number]
--- NOTE | 2019-07-07 15:06 | RAD ---
Esophagram HISTORY: Esophageal stricture with dilatation. Evaluate for leak. FINDINGS: Single column Gastrografin contrast evaluation of the esophagus. Contrast passed through th e esophagus without obstruction or leak. There were nonpropulsive tertiary type contractions of the esophagus with diminished primary and seco ndary peristalsis. No persistent filling defect. Fluoroscopy time 0.8 minutes. IMPRESSION: No evidence of esophageal leak or obstruction. Severe presbyesophagus.
[2019-07-07] MEDS ORDERED: Mometasone/Formoterol 120 PUFF INHALER INH PRN (16:21)
--- NOTE | 2019-07-07 16:33 | PDOC.HOSPP ---
- Subjective Encounter Date: 07/07/19 Encounter Time: 16:28 Subjective: 69 y/o female with GERD, esophageal stricture s/p prior food impaction who presentated to the ED with food imparction and inability to swallow associated with SOB. Reportedly has been having difficulty swallowng in the last 4 weeks prior to the imparction. Had a very difficult and prolonged disimparction hence admitted to ICU due to concerns for airway edema. Feeling better. Esophagogram showed no leak and she was restarted on liquid diet. - Objective Vital Signs & Weight: Vital Signs (12 hours) Temp Pulse Pulse BP Pulse Ox Pulse Ox Pulse Ox 07/07/19 15:17 98.6 F 07/07/19 14:54 115 H 114 H 149/94 H 100 99 07/07/19 11:14 97.3 F L 07/07/19 08:00 99 07/07/19 07:16 98.6 F Weight Admit Weight 273 lb 1 oz Weight 273 lb 1 oz Most Recent Monitor Data Heart Rate from ECG 113 NIBP 177/113 NIBP BP-Mean 134 Respiration from ECG 22 SpO2 100 I&O: 07/06/19 07/07/19 07/08/19 06:59 06:59 06:59 Intake Total 343 Balance 343 Result Diagrams: 07/07/19 05:21 07/07/19 05:21 Additional Labs: Accuchecks 07/06/19 18:04 POC Glucose 110 Hospitalist ROS - Medication Medications: Active Medications Generic Name Dose Route Start Last Admin Trade Name Freq PRN Reason Stop Dose Admin Enoxaparin Sodium 40 mg 07/07/19 09:00 07/07/19 08:37 Lovenox SC 40 mg 0900 JESUSITA Administration Hydralazine HCl 10 mg 07/07/19 02:00 07/07/19 04:19 Apresoline SLOW IVP 10 mg Q4H PRN Administration SBP > 180 and HR < 70 Piperacillin Sod/Tazobactam 100 mls @ 200 mls/hr 07/07/19 03:00 07/07/19 15: 52 Sod 3.375 gm/ Sodium Chloride IVPB 100 mls 0300,0900,1500,2100 JESUSITA Administration Methylprednisolone Sodium Succinate 20 mg 07/07/19 06:00 07/07/19 15:52 Solu-Medrol IVP 20 mg Q8HR JESUSITA Administration - Exam General Appearance: awake alert Eye: anicteric sclera ENT: normocephalic atraumatic Neck: supple, symmetric, no JVD Heart: RRR Respiratory: no wheezes, no rales, no ronchi Gastrointestinal: soft, non-tender, non-distended, normal bowel sounds Gastrointestinal - other findings: obese Extremities: no cyanosis, no edema Neurological: cranial nerve grossly intact, no focal deficits Psychiatric: A&O x 3 Hosp A/P (1) Esophageal obstruction due to food impaction Code(s): K22.2 - ESOPHAGEAL OBSTRUCTION; T18.128A - FOOD IN ESOPHAGUS CAUSING OTHER INJURY, INITIAL ENCOUNTER Status: Acute (2) Esophageal stricture Code(s): K22.2 - ESOPHAGEAL OBSTRUCTION Status: Acute (3) Presbyesophagus Code(s): K22.8 - OTHER SPECIFIED DISEASES OF ESOPHAGUS Status: Acute (4) GERD (gastroesophageal reflux disease) Code(s): K21.9 - GASTRO-ESOPHAGEAL REFLUX DISEASE WITHOUT ESOPHAGITIS Status: Chronic (5) Hypertension Code(s): I10 - ESSENTIAL (PRIMARY) HYPERTENSION Status: Chronic Qualifiers: Hypertension type: essential hypertension Qualified Code(s): I10 - Essential (primary) hypertension (6) Obesity (BMI 30-39.9) Code(s): E66.9 - OBESITY, UNSPECIFIED Status: Chronic (7) Hypokalemia Code(s): E87.6 - HYPOKALEMIA Status: Acute - Plan Restart antihypertensives and other medication. Continue steroid and antibiotics for now. get swallow evaluation by speech May benefit for dilatation of the stricture. DC IVF as patient is back on oral intake. replete serum potassium.
[2019-07-07] MEDS: Labetalol HCl 100 MG/20 ML VIAL SLOW IVP PRN (18:26)
[2019-07-07] MEDS: Gabapentin 300 MG CAP PO SCH (21:15)
[2019-07-07] MEDS: Magnesium Oxide 400 MG TAB PO SCH (21:15)
[2019-07-07] MEDS: Lisinopril 10 MG TAB PO SCH (21:15)
[2019-07-07] MEDS: Pramipexole Di-HCl 1 MG TAB PO SCH (21:17)
[2019-07-08] MEDS: Labetalol HCl 100 MG/20 ML VIAL SLOW IVP PRN (00:05)
[2019-07-08] MEDS: Melatonin 3 MG TAB PO PRN ×2 (00:06→21:40)
[2019-07-08] MEDS: Piperacillin/Tazobactam 3.375 GM in Sodium Chloride 0.9% 100 ML IVPB SCH ×2 (03:35→09:06)
[2019-07-08 03:56] LABS: #Lymphocytes 1.7 thou/uL (1.20-3.40); #Monocytes 0.4 thou/uL (0.11-0.59); #Neutrophils 6.8 thou/uL (1.40-6.50); %Basophils 0.5 % (0.0-1.0); %Eosinophils 0.2 % (0.0-10.0); %Lymphocytes 18.6 % (21.0-51.0); %Monocytes 4.4 % (0.0-10.0); %Neutrophils 76.4 % (42.0-75.0); Mean Corpuscular HGB CONC 33.4 g/dL (32.0-36.0); Mean Corpuscular Hemoglobin 31.9 pg (27.0-31.0); Mean Corpuscular Volume 95.4 fL (78.0-98.0); Mean Platelet Volume 7.9 fL (7.4-10.4); Platelet Count 259 thou/uL (130-400); RBC Distribution Width 12.1 % (11.5-14.5); Red Blood Cell (RBC) Count 4.08 mill/uL (4.20-5.40); White Blood Cell (WBC) Count 8.9 thou/uL (4.8-10.8)
[2019-07-08 04:14] LABS: Anion Gap 10 mmol/L (10-20); BUN (Urea Nitrogen) 12 mg/dL (9.8-20.1); Calc. Creatinine Clearance 135 mL/min (70-130); Calcium 8.8 mg/dL (7.8-10.44); Carbon Dioxide 26 mmol/L (23-31); Chloride 111 mmol/L (98-107); Estimated GFR-MDRD 75; Glucose 138 mg/dL (80-115); Potassium 3.5 mmol/L (3.5-5.1); Sodium 143 mmol/L (136-145)
[2019-07-08] MEDS: methylPREDNISolone Sod Succ 40 MG VIAL IVP SCH (05:59)
[2019-07-08] MEDS ORDERED: Non-Formulary Item 1 EACH (Omeprazole [Omeprazole] 1 TAB) PO SCH (09:00)
[2019-07-08] MEDS: Magnesium Oxide 400 MG TAB PO SCH ×2 (09:05→20:36)
[2019-07-08] MEDS: Gabapentin 300 MG CAP PO SCH ×2 (09:05→20:35)
[2019-07-08] MEDS: Pramipexole Di-HCl 1 MG TAB PO SCH ×3 (09:05→20:37)
[2019-07-08] MEDS: Lisinopril 10 MG TAB PO SCH ×2 (09:05→20:36)
[2019-07-08] MEDS: Enoxaparin Sodium 40 MG/0.4 ML SYRINGE SC SCH (09:05)
[2019-07-08] MEDS ORDERED: Amoxicillin/Potassium Clav 875 MG TAB PO SCH (10:00)
--- NOTE | 2019-07-08 15:11 | PDOC.HOSPP ---
- Subjective Encounter Date: 07/08/19 Encounter Time: 09:10 Subjective: 69 y/o female with GERD, esophageal stricture s/p prior food impaction who presentated to the ED with food imparction and inability to swallow associated with SOB. Reportedly has been having difficulty swallowng in the last 4 weeks prior to the imparction. Had a very difficult and prolonged disimparction hence admitted to ICU due to concerns for airway edema. Esophagogram showed no leak and she was restarted on liquid diet which was well tolerated. Had 3 bouts of loose stools earlier which has subsided. No fever or chest pain. - Objective Vital Signs & Weight: Vital Signs (12 hours) Temp Pulse Pulse BP BP BP BP 07/08/19 11:10 97.8 F 07/08/19 10:01 120 H 120 H 138/111 H 152/104 H 07/08/19 09:22 152/104 H 07/08/19 09:05 152/104 H 07/08/19 08:00 07/08/19 07:13 97.0 F L 07/08/19 03:36 98.6 F Pulse Ox 07/08/19 11:10 07/08/19 10:01 07/08/19 09:22 07/08/19 09:05 07/08/19 08:00 92 L 07/08/19 07:13 07/08/19 03:36 Weight Admit Weight 273 lb 1 oz Weight 273 lb 1 oz Most Recent Monitor Data Heart Rate from ECG 79 NIBP 142/69 NIBP BP-Mean 93 Respiration from ECG 22 SpO2 91 I&O: 07/07/19 07/08/19 07/09/19 06:59 06:59 06:59 Intake Total 343 1570 Output Total 1300 Balance 343 270 Result Diagrams: 07/08/19 03:39 07/08/19 03:39 Hospitalist ROS - Medication Medications: Active Medications Generic Name Dose Route Start Last Admin Trade Name Freq PRN Reason Stop Dose Admin Diltiazem HCl 180 mg 07/08/19 09:00 07/08/19 09:05 Cardizem Cd PO 180 mg DAILY JESUSITA Administration Enoxaparin Sodium 40 mg 07/07/19 09:00 07/08/19 09:05 Lovenox SC 40 mg 0900 JESUSITA Administration Gabapentin 900 mg 07/07/19 21:00 07/08/19 09:05 Neurontin PO 900 mg BID JESUSITA Administration Hydralazine HCl 10 mg 07/07/19 02:00 07/07/19 04:19 Apresoline SLOW IVP 10 mg Q4H PRN Administration SBP > 180 and HR < 70 Labetalol HCl 20 mg 07/07/19 02:00 07/08/19 00:05 Normodyne SLOW IVP 20 mg Q4H PRN Administration SBP > 180 and HR >/= 70 Lisinopril 10 mg 07/07/19 21:00 07/08/19 09:05 Zestril PO 10 mg BID JESUSITA Administration Magnesium Oxide 400 mg 07/07/19 21:00 07/08/19 09:05 Magnesium Oxide PO 400 mg BID JESUSITA Administration Melatonin 3 mg 07/07/19 18:31 07/08/19 00:06 Melatonin PO 3 mg HS PRN Administration Insomnia Pantoprazole Sodium 40 mg 07/07/19 21:00 07/08/19 09:06 Protonix PO 40 mg BID JESUSITA Administration Pramipexole Dihydrochloride 1 mg 07/07/19 21:00 07/08/19 09:05 Mirapex PO 1 mg TID JESUSITA Administration - Exam General Appearance: awake alert Eye: anicteric sclera ENT: normocephalic atraumatic, moist mucosa Neck: symmetric, no JVD Heart: RRR Respiratory: no wheezes, no rales, no ronchi, normal chest expansion, no tachypnea Gastrointestinal: soft, non-tender, non-distended, normal bowel sounds Extremities: no cyanosis, no edema Neurological: cranial nerve grossly intact, no focal deficits Psychiatric: A&O x 3 Hosp A/P (1) Esophageal obstruction due to food impaction Code(s): K22.2 - ESOPHAGEAL OBSTRUCTION; T18.128A - FOOD IN ESOPHAGUS CAUSING OTHER INJURY, INITIAL ENCOUNTER Status: Acute (2) Esophageal stricture Code(s): K22.2 - ESOPHAGEAL OBSTRUCTION Status: Acute (3) Presbyesophagus Code(s): K22.8 - OTHER SPECIFIED DISEASES OF ESOPHAGUS Status: Acute (4) GERD (gastroesophageal reflux disease) Code(s): K21.9 - GASTRO-ESOPHAGEAL REFLUX DISEASE WITHOUT ESOPHAGITIS Status: Chronic (5) Hypertension Code(s): I10 - ESSENTIAL (PRIMARY) HYPERTENSION Status: Chronic Qualifiers: Hypertension type: essential hypertension Qualified Code(s): I10 - Essential (primary) hypertension (6) Obesity (BMI 30-39.9) Code(s): E66.9 - OBESITY, UNSPECIFIED Status: Chronic (7) Hypokalemia Code(s): E87.6 - HYPOKALEMIA Status: Acute - Plan Continue antihypertensives and adjust doses to get adequate BP control. DC steroid and antibiotics in the absence of airway edema or pneumonic process. Advance diet to soft diet Get C dif toxin assay Monitor electrolytes and replete as needed. Transfer to Medical floor.
--- NOTE | 2019-07-08 15:43 | PRG ---
DATE OF SERVICE: 07/08/2019 SUBJECTIVE: Ms. Gonzalez has been doing well. She advanced to a soft diet and earlier today, she was able to tolerate yogurt, mashed potatoes, meatloaf, and green beans. She is not having any dysphagia. No sore throat or chest pain. She has been hemodynamically stable. OBJECTIVE: VITAL SIGNS: Temperature 97.8, blood pressure 142/69, heart rate 79, and 92% oxygen saturation on room air. GENERAL: No acute distress. HEART: Regular rate and rhythm. LUNGS: Clear to auscultation bilaterally. ABDOMEN: Soft and nontender to palpation. EXTREMITIES: No peripheral edema. LABORATORY STUDIES: WBC 8.9, hemoglobin 13.0, platelets 259. Sodium 143, potassium 3.5, BUN 12, and creatinine 0.76. IMAGING STUDIES: Barium swallow x-ray performed yesterday demonstrated no evidence of esophageal leak or obstruction. There is severe presbyesophagus. ASSESSMENT AND PLAN: 1. Esophageal food bolus impaction, status post esophagogastroduodenoscopy early yesterday morning with clearance of the obstruction. 2. Dysphagia. 3. Presbyesophagus. 4. Distal esophageal stricture. The patient is doing very well, having advanced her diet. I would recommend continued acid suppression with PPI twice daily at least for the next couple of months. Continue with a soft diet, and I counseled her on taking smaller bites of chewing her food thoroughly and washing it down with water at frequent intervals. She can follow up in the next month or two with either Dr. Harris or Dr. Barnett of [facility], whom she has seen in the past. From a GI perspective, no need for further steroids or antibiotics. GI will sign off. Please call back anytime with questions or concerns. Job ID: [id number]
[2019-07-09] MEDS ORDERED: Acetaminophen 325 MG TAB PO PRN (02:39)
[2019-07-09] MEDS: hydrALAZINE 20 MG/ML VIAL SLOW IVP PRN (05:10)
[2019-07-09] MEDS ORDERED: Lisinopril 10 MG TAB PO SCH (08:01)
[2019-07-09] MEDS: Magnesium Oxide 400 MG TAB PO SCH (08:51)
[2019-07-09] MEDS: Gabapentin 300 MG CAP PO SCH (08:51)
[2019-07-09] MEDS: Pramipexole Di-HCl 1 MG TAB PO SCH (08:51)
[2019-07-09] MEDS: Enoxaparin Sodium 40 MG/0.4 ML SYRINGE SC SCH (08:53)
[2019-07-09] MEDS ORDERED: Lisinopril 20 MG TAB PO SCH (09:00)
[2019-07-09 13:39] VITALS: BP 139/85; TEMP 98
--- NOTE | 2019-07-11 07:26 | DIS ---
DATE OF ADMISSION: 07/06/2019 DATE OF DISCHARGE: 07/09/2019 PRIMARY CARE PHYSICIAN: Gabino Lovelace MD DISCHARGE DIAGNOSES: 1. Esophageal obstruction due to food impaction. 2. Distal esophageal stricture. 3. Severe presbyesophagus. 4. Gastroesophageal reflux disease. 5. Hypertension. 6. Obesity. 7. Hypokalemia. 8. Depression. CONSULT: Gastroenterology. HOSPITAL COURSE: A 69-year-old female with gastroesophageal reflux disease, esophageal stricture status post prior food impaction, who presented to the emergency room with food impaction and inability to swallow associated with some shortness of breath. The patient reportedly has been having difficulty swallowing in the last 4 days leading to food impaction. CT scan of the chest and abdomen showed dilated esophagus suggestive of food impaction, hence the patient was taken to endoscopy suite for food impaction, but this, however, was prolonged due to nature of the food particle, but it was finally successfully disimpacted after a 3-hour period. Given prolonged nature and multiple passes, there was some concern for airway edema, hence the patient was admitted to the IMCU and started on antibiotics and steroids. Subsequent esophagogram showed no leak to suggest esophageal perforation, hence the patient was restarted on liquid diet, which was later transitioned to soft diet and this was tolerated well. The patient was found to have uncontrolled hypertension, hence antihypertensives were adjusted with improvement in BP control. She remained stable and was tolerating oral soft diet and was subsequently discharged home. The patient is to follow up with GI for interval dilatation of the distal esophageal stricture in about 3 to 4 weeks. PHYSICAL EXAMINATION: VITAL SIGNS: Temperature 98.0, pulse 92, respiratory rate 16, SpO2 of 96% on room air, blood pressure 139/85. GENERAL: Obese female, in no distress. Afebrile. Anicteric. Acyanotic. HEENT: Normocephalic, atraumatic. Oral mucosa is moist. CARDIOVASCULAR: Regular rhythm and rate with normal. heart sounds 1 and 2. Soft systolic murmur noted. RESPIRATORY: Fair air entry bilaterally with no crackle or rhonchi or use of accessory muscles. GI: Obese, soft, nontender, nondistended with normal bowel sounds. EXTREMITIES: Grossly normal looking atraumatic with no obvious edema or erythema. 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 Cranial nerves 2 through 12 are grossly intact. DISCHARGE CONDITION: Improved. DISCHARGE DISPOSITION: Home. FOLLOWUP: 1. Follow up with GI in 3 to 4 weeks. 2. With primary care physician in 1 week. DISCHARGE MEDICATIONS: 1. Albuterol sulfate HFA two inhalation p.o. t.i.d. p.r.n. for shortness of breath. 2. Gabapentin 900 mg p.o. b.i.d. 3. DuoNeb 3 mL nebulization p.r.n. 4. Lovastatin 40 mg p.o. daily. 5. two puffs inhalation p.r.n. 6. Multivitamin with iron and folic acid 1 tablet p.o. daily. 7. Pramipexole 1 mg p.o. t.i.d. 8. p.o. daily. 9. Enalapril maleate 20 mg p.o. b.i.d. 10. Protonix 40 mg p.o. b.i.d. This discharge took more than 35 minutes. Job ID: [id number]
== END 2019-07-09 14:27 | disposition home or self-care (01) | DRG 395 ==
LOC: ERS 16:00 → ERHOLD 19:45 → IMCU/EMU 21:12 → SURG A 21:39 → IMCU/EMU 07-07 01:54 → SURG A 07-08 22:41
PROVIDERS: ADMIT Internal Medicine; ATTEND Internal Medicine
PROC: 0DC48ZZ Extirpation of Matter from Esophagogastric Junction, Via Natural or Artificial Opening Endoscopic (ICD-10-PCS; principal; 2019-07-07)
DX: T18.128A Food in esophagus causing other injury, initial encounter (principal); K22.2 Esophageal obstruction; F32.9 Major depressive disorder, single episode, unspecified; I10 Essential (primary) hypertension; K21.9 Gastro-esophageal reflux disease without esophagitis; E87.6 Hypokalemia; K22.8 Other specified diseases of esophagus; E66.9 Obesity, unspecified; Z68.39 Body mass index [BMI] 39.0-39.9, adult; Z88.8 Allergy status to other drugs, medicaments and biological substances; Z91.013 Allergy to seafood; Z90.49 Acquired absence of other specified parts of digestive tract; Z87.891 Personal history of nicotine dependence
CPT/HCPCS: 36415; 36416; 71045; 71275; 74220; 80048; 80053; 81003; 81015; 83605; 83735; 84484; 85025; 87040; 87324; 87449; 87804; 93005; A4353; C9113; J0360; J0456; J0696; J1610; J1650; J2001; J2405; J2543; J2704; J2920; J3480; J3490; J7050; Q9963; Q9967

== ENCOUNTER 2021-02-10 09:11 | Outpatient (CLI) | payer MEDICARE, BC | END 2021-02-10 09:12 | disposition home or self-care (01) | LOC: BICMRI 09:11 | PROVIDERS: ATTEND Specialist | DX: M67.912 Unspecified disorder of synovium and tendon, left shoulder (principal); M19.012 Primary osteoarthritis, left shoulder ==

== ENCOUNTER 2021-08-01 07:20 | Outpatient (CLI) | payer MEDICARE, BC ==
[2021-07-28 15:34] VITALS: BMI 43.4
[~2021-08-01 07:20] MED LIST changes: +FLU VACC QS2021-22(65YR UP)/PF 240 MCG/0.7 ML SYRINGE IM ONE; -Glycopyrrolate 0.2 MG/ML 5 ML SYRINGE ONE; -Iopamidol-370 76% 500 ML 1 ML ONE; -Lidocaine 1% PF 5 ML VIAL ONE; -Ondansetron PF 4 MG/2 ML Vial ONE; -PHENYLEPHRINE-NS 100 MCG/ML 10 ML SYRINGE ONE; -PROPOFOL 200 MG/20 ML VIAL ONE; -Rocuronium Bromide 10 MG/ML (10ML VIAL) ONE; -Succinylcholine Chloride 20 MG/ML 10 ml SYRINGE FS ONE
[2021-08-01 08:20] VITALS: BP 131/84; TEMP 98.5
== END 2021-08-01 10:45 | disposition home or self-care (01) ==
LOC: RAD 07:20
PROVIDERS: ATTEND Nurse Practitioner Family
DX: M96.1 Postlaminectomy syndrome, not elsewhere classified (principal); M47.816 Spondylosis without myelopathy or radiculopathy, lumbar region; M47.814 Spondylosis without myelopathy or radiculopathy, thoracic region; Z98.890 Other specified postprocedural states
CPT/HCPCS: 62305; 72126; 72129; 72132

== ENCOUNTER 2022-01-30 10:37 | Emergency (ER) | payer MEDICARE, BC ==
[2022-01-30 12:04] LABS: #Lymphocytes 1.8 thou/uL (1.20-3.40); #Monocytes 0.7 thou/uL (0.11-0.59); #Neutrophils 10.6 thou/uL (1.40-6.50); %Basophils 0.1 % (0.0-1.0); %Eosinophils 0.1 % (0.0-10.0); %Lymphocytes 13.7 % (21.0-51.0); %Monocytes 5.2 % (0.0-10.0); %Neutrophils 80.8 % (42.0-75.0); Hemoglobin 14.6 g/dL (12.0-16.0); Mean Corpuscular HGB CONC 33.3 g/dL (32.0-36.0); Platelet Count 266 thou/uL (130-400); RBC Distribution Width 12.2 % (11.5-14.5); Red Blood Cell (RBC) Count 4.44 mill/uL (4.20-5.40); White Blood Cell (WBC) Count 13.1 thou/uL (4.8-10.8)
[2022-01-30 12:29] LABS: ALT (SGPT) 19 U/L (8-55); AST (SGOT) 17 U/L (5-34); Albumin 3.5 g/dL (3.4-4.8); Alkaline Phosphatase 67 U/L (40-110); Anion Gap 13 mmol/L (10-20); BUN (Urea Nitrogen) 17 mg/dL (9.8-20.1); Bilirubin, Total 0.8 mg/dL (0.2-1.2); Calc. Creatinine Clearance 0 mL/min (70-130); Calcium 9.4 mg/dL (7.8-10.44); Carbon Dioxide 27 mmol/L (23-31); Chloride 101 mmol/L (98-107); Globulin 3.4 g/dL (2.4-3.5); Glucose 106 mg/dL (83-110); Potassium 3.7 mmol/L (3.5-5.1); Protein, Total 6.9 g/dL (5.8-8.1); Sodium 137 mmol/L (136-145)
== END 2022-01-30 14:00 | disposition home or self-care (01) ==
LOC: ERS 10:37
DX: I10 Essential (primary) hypertension (principal); E78.5 Hyperlipidemia, unspecified; Z87.891 Personal history of nicotine dependence; Z79.899 Other long term (current) drug therapy
CPT/HCPCS: 36415; 80053; 84484; 85025; 93005; 99283

== ENCOUNTER 2024-01-30 19:23 | Inpatient (IN) | payer MEDICARE, BC ==
[2024-01-30 20:10] LABS: #Basophils 0.03 10x3/uL (0.0-0.2); #Eosinphils Less than 0.03 10x3/uL (0.0-0.7); %Basophils 0.2 % (0.0-1.0); %Lymphocytes 18.6 % (21.0-51.0); %Monocytes 8.2 % (0.0-10.0); %Neutrophils 72.6 % (42.0-75.0); Hematocrit 43.2 % (36.0-47.0); Mean Corpuscular HGB CONC 34.7 g/dL (32.0-36.0); Mean Corpuscular Hemoglobin 32.3 pg (27.0-31.0); Mean Corpuscular Volume 93.1 fL (78.0-98.0); Mean Platelet Volume 11.4 fL (7.4-10.4); Platelet Count 147 10x3/uL (130-400); RBC Distribution Width 13.9 % (11.5-14.5); Red Blood Cell (RBC) Count 4.64 mill/uL (4.20-5.40)
[2024-01-30 20:26] LABS: ALT (SGPT) 9 U/L (8-55); AST (SGOT) 16 U/L (5-34); Albumin 3.4 g/dL (3.4-4.8); Alkaline Phosphatase 62 U/L (40-110); Anion Gap 16 mmol/L (10-20); BUN (Urea Nitrogen) 15 mg/dL (9.8-20.1); Bilirubin, Total 0.7 mg/dL (0.2-1.2); Calc. Creatinine Clearance 0 mL/min (70-130); Calcium 9.1 mg/dL (7.8-10.44); Carbon Dioxide 27 mmol/L (23-31); Chloride 101 mmol/L (98-107); Estimated GFR 59; Globulin 4.2 g/dL (2.4-3.5); Glucose 105 mg/dL (83-110); Potassium 3.3 mmol/L (3.5-5.1); Protein, Total 7.6 g/dL (5.8-8.1); Sodium 141 mmol/L (136-145)
[2024-01-31 02:16] LABS: Bacteria/HPF 1+ HPF (None Seen); Bilirubin Negative (Negative); Blood, Urine Negative (Negative); CAUTI Indications for Culture < 2yrs of age; Clarity Turbid (Clear); Glucose, Urine (Dipstick) Normal (Negative); Ketone, Urine Trace mg/dL (Negative); Leukocyte 500 Leu/uL (Negative); Nitrite 2+ (Negative); Protein, Urine (Dipstick) 30 mg/dL (Neg-Trace); RBC/HPF 0-3 HPF (0-3); Specific Gravity, Urine 1.019 (1.002-1.036); Squamous Epithelial 0-3 HPF (0-3); Urobilinogen Normal mg/dL (Less than 2); WBC/HPF Greater than 50 HPF (0-3)
[2024-01-31 02:17] LABS: Urine Culture Reflex Yes Yes
[2024-01-31] MEDS ORDERED: cefTRIAXone (ROCEPHIN) 1 GM VIAL ONE (02:22)
[2024-01-31] MEDS ORDERED: Sodium Chloride 0.9% 100 ML ONE (02:22)
[2024-01-31] MEDS ORDERED: Guaifenesin DM 100-10/5 ML UDCUP PO PRN (07:51)
[2024-01-31] MEDS ORDERED: Albuterol 2.5 MG (3 mL) NEB NEB PRN (07:51)
[2024-01-31 08:01] VITALS: BMI 31.1
[2024-01-31] MEDS: Sodium Chloride 0.9% 1,000 ML IV SCH (08:58)
[2024-01-31] MEDS: Famotidine 20 MG TAB PO SCH (08:59)
[2024-01-31] MEDS: Enoxaparin 40 MG (0.4 mL) SYRINGE SC SCH (08:59)
[2024-01-31] MEDS ORDERED: Mometasone 200 MCG/Formoterol 5 MCG 120 PUFF INHALER INH PRN (09:15)
[2024-01-31] MEDS ORDERED: Iopamidol 370 76% 100 ML VIAL ONE (11:23)
[2024-01-31] MEDS: Pregabalin 50 MG CAP PO SCH (14:37)
[2024-01-31] MEDS: Carvedilol 3.125 MG TAB PO SCH (18:11)
[2024-01-31] MEDS ORDERED: Non-Formulary Item 1 EACH (Enalapril Maleate [Enalapril Maleate] 20 MG Tablet) PO SCH (21:00)
[2024-01-31] MEDS ORDERED: Non-Formulary Item 1 EACH (Lovastatin [Lovastatin] 40 MG Tablet) PO SCH (21:00)
[2024-01-31] MEDS ORDERED: Non-Formulary Item 1 EACH (Hydralazine Hcl [Hydralazine Hcl] 50 MG Tablet) PO SCH (21:00)
[2024-02-01] MEDS: cefTRIAXone\\ROCEPHIN 1 GM in Sodium Chloride 0.9% 100 ML IVPB SCH (01:23)
[2024-02-01 05:05] LABS: Hematocrit 39.1 % (36.0-47.0); Hemoglobin 13.1 g/dL (12.0-16.0); Mean Corpuscular HGB CONC 33.5 g/dL (32.0-36.0); Mean Corpuscular Hemoglobin 31.6 pg (27.0-31.0); Mean Corpuscular Volume 94.4 fL (78.0-98.0); Platelet Count 121 10x3/uL (130-400); RBC Distribution Width 13.5 % (11.5-14.5); Red Blood Cell (RBC) Count 4.14 mill/uL (4.20-5.40)
[2024-02-01 05:20] LABS: Anion Gap 14 mmol/L (10-20); BUN (Urea Nitrogen) 14 mg/dL (9.8-20.1); Calc. Creatinine Clearance 101 mL/min (70-130); Calcium 8.6 mg/dL (7.8-10.44); Carbon Dioxide 25 mmol/L (23-31); Chloride 105 mmol/L (98-107); Estimated GFR 83; Glucose 85 mg/dL (83-110); Sodium 141 mmol/L (136-145)
[2024-02-01 05:36] LABS: Band 1 % (5-11); Burr Cells SLIGHT = 2-5 cells HPF (0-1); Large Platelets 1.4 % (0-5); Lymphocytes 21 % (21-51); Monocytes 6 % (0-10); Neutrophil 72 % (42-75); Ovalocytes SLIGHT = 2-5 cells HPF (0-1); Platelet Adequacy Comment Platelets Decreased; Polychromasia SLIGHT = 2-3 cells HPF (0-2); Smudge Cells 37.5 %
[2024-02-01] MEDS ORDERED: Atenolol 50 MG TAB PO SCH (09:00)
[2024-02-01] MEDS: Hydrochlorothiazide 25 MG TAB PO SCH (09:35)
[2024-02-01] MEDS: Aspirin 81 mg Enteric Coated Tablet PO SCH (09:35)
[2024-02-01] MEDS: Lisinopril 10 MG TAB PO SCH (09:35)
[2024-02-01] MEDS: Divalproex Sodium 125 mg Sprinkle Capsule PO SCH (09:35)
[2024-02-01] MEDS: FLUoxetine HCl 20 MG CAP PO SCH (09:35)
[2024-02-01] MEDS ORDERED: Iopamidol-370 76% 500 ML MDV (1 ML CHARGE) ONE (12:18)
[2024-02-01] MEDS: Pantoprazole DR 40 MG TAB PO SCH (12:54)
[2024-02-01] MEDS: Mag-Al 1200 mg/1200 mg/30 ML UDCUP PO SCH (12:54)
[2024-02-01] MEDS ORDERED: Mag-Al Plus 1200/1200/120 MG (30 mL) UDCUP PO PRN (16:23)
[2024-02-01] MEDS: Lorazepam 1 MG TAB PO SCH (17:24)
[2024-02-01] MEDS: Potassium Chloride 20 MEQ TAB PO SCH (17:24)
[2024-02-01] MEDS: Pregabalin 50 MG CAP PO SCH (20:09)
[2024-02-02 04:24] LABS: Hematocrit 37.9 % (36.0-47.0); Mean Corpuscular HGB CONC 34.3 g/dL (32.0-36.0); Mean Corpuscular Hemoglobin 31.3 pg (27.0-31.0); Mean Corpuscular Volume 91.1 fL (78.0-98.0); Mean Platelet Volume 11.2 fL (7.4-10.4); Platelet Count 159 10x3/uL (130-400); Red Blood Cell (RBC) Count 4.16 mill/uL (4.20-5.40)
[2024-02-02 04:57] LABS: Band 11 % (5-11); Hypochromia SLIGHT = 6-15 cells HPF (0-5); Large Platelets 6.1 % (0-5); Lymphocytes 23 % (21-51); Monocytes 5 % (0-10); Neutrophil 62 % (42-75); Platelet Adequacy Comment Platelets Normal; Polychromasia SLIGHT = 2-3 cells HPF (0-2)
[2024-02-02 05:16] LABS: ALT (SGPT) 12 U/L (8-55); AST (SGOT) 19 U/L (5-34)
[2024-02-02 05:32] LABS: Albumin 2.8 g/dL (3.4-4.8); Alkaline Phosphatase 54 U/L (40-110); Anion Gap 12 mmol/L (10-20); BUN (Urea Nitrogen) 14 mg/dL (9.8-20.1); Bilirubin, Total 0.5 mg/dL (0.2-1.2); Calc. Creatinine Clearance 72 mL/min (70-130); Calcium 8.9 mg/dL (7.8-10.44); Carbon Dioxide 25 mmol/L (23-31); Chloride 103 mmol/L (98-107); Estimated GFR 55; Globulin 4.1 g/dL (2.4-3.5); Glucose 104 mg/dL (83-110); Lipase 48 U/L (8-78); Potassium 3.5 mmol/L (3.5-5.1); Protein, Total 6.9 g/dL (5.8-8.1); Sodium 136 mmol/L (136-145)
[2024-02-02] MEDS: Pantoprazole DR 40 MG TAB PO SCH (10:02)
[2024-02-02] MEDS: Potassium Chloride 20 MEQ TAB PO SCH (22:12)
[2024-02-02] MEDS: hydrALAZINE 20 MG/ML VIAL SLOW IVP SCH (22:12)
[2024-02-02 22:39] LABS: Magnesium 1.7 mg/dL (1.6-2.6)
[2024-02-03 07:01] LABS: #Basophils Less than 0.03 10x3/uL (0.0-0.2); %Basophils 0.3 % (0.0-1.0); %Eosinophils 0.8 % (0.0-10.0); %Lymphocytes 31.5 % (21.0-51.0); %Monocytes 8.5 % (0.0-10.0); %Neutrophils 58.6 % (42.0-75.0); Hematocrit 41.5 % (36.0-47.0); Hemoglobin 14.2 g/dL (12.0-16.0); Mean Corpuscular HGB CONC 34.2 g/dL (32.0-36.0); Mean Corpuscular Hemoglobin 31.1 pg (27.0-31.0); Mean Corpuscular Volume 90.8 fL (78.0-98.0); Mean Platelet Volume 10.8 fL (7.4-10.4); Platelet Count 189 10x3/uL (130-400); Red Blood Cell (RBC) Count 4.57 mill/uL (4.20-5.40)
[2024-02-03 07:22] LABS: ALT (SGPT) 12 U/L (8-55); AST (SGOT) 18 U/L (5-34); Albumin 2.9 g/dL (3.4-4.8); Alkaline Phosphatase 49 U/L (40-110); Anion Gap 16 mmol/L (10-20); BUN (Urea Nitrogen) 15 mg/dL (9.8-20.1); Bilirubin, Total 0.6 mg/dL (0.2-1.2); Calc. Creatinine Clearance 103 mL/min (70-130); Calcium 9.2 mg/dL (7.8-10.44); Carbon Dioxide 23 mmol/L (23-31); Chloride 107 mmol/L (98-107); Estimated GFR 86; Globulin 4.4 g/dL (2.4-3.5); Glucose 97 mg/dL (83-110); Potassium 4.2 mmol/L (3.5-5.1); Protein, Total 7.3 g/dL (5.8-8.1); Sodium 142 mmol/L (136-145)
[2024-02-04 04:42] LABS: Hematocrit 41.4 % (36.0-47.0); Mean Corpuscular HGB CONC 33.8 g/dL (32.0-36.0); Mean Corpuscular Hemoglobin 31.9 pg (27.0-31.0); Mean Corpuscular Volume 94.3 fL (78.0-98.0); Mean Platelet Volume 10.9 fL (7.4-10.4); Platelet Count 207 10x3/uL (130-400); RBC Distribution Width 13.2 % (11.5-14.5); Red Blood Cell (RBC) Count 4.39 mill/uL (4.20-5.40)
[2024-02-04 05:01] LABS: ALT (SGPT) 13 U/L (8-55); AST (SGOT) 19 U/L (5-34); Albumin 2.9 g/dL (3.4-4.8); Alkaline Phosphatase 47 U/L (40-110); Anion Gap 18 mmol/L (10-20); BUN (Urea Nitrogen) 22 mg/dL (9.8-20.1); Bilirubin, Total 0.7 mg/dL (0.2-1.2); Calc. Creatinine Clearance 87 mL/min (70-130); Calcium 9.2 mg/dL (7.8-10.44); Carbon Dioxide 22 mmol/L (23-31); Chloride 106 mmol/L (98-107); Estimated GFR 69; Globulin 4.5 g/dL (2.4-3.5); Glucose 92 mg/dL (83-110); Potassium 4.1 mmol/L (3.5-5.1); Protein, Total 7.4 g/dL (5.8-8.1); Sodium 142 mmol/L (136-145)
[2024-02-04 05:09] LABS: Band 6 % (5-11); Eosinophils 2 % (0-10); Lymphocytes 28 % (21-51); Monocytes 6 % (0-10); Neutrophil 48 % (42-75); Platelet Adequacy Comment Platelets Normal; Polychromasia SLIGHT = 2-3 cells HPF (0-2); Reactive Lymphocytes 10 % (0-10)
[2024-02-05] MEDS: Acetaminophen 325 MG TAB PO PRN (02:38)
[2024-02-05] MEDS: Amlodipine 10 MG TAB PO SCH (10:26)
[2024-02-05 12:40] VITALS: BP 150/84; TEMP 98.1
[2024-02-05] MEDS ORDERED: Gabapentin 300 MG CAP PO SCH (15:00)
[2024-02-06] MEDS ORDERED: Amlodipine 10 MG TAB PO SCH (09:00)
== END 2024-02-05 16:20 | disposition home or self-care (01) | DRG 871 ==
LOC: ERS 19:23 → 2NO 01-31 03:39 → T4-B 02-04 20:36
PROVIDERS: ADMIT Internal Medicine; ATTEND Internal Medicine
DX: A41.9 Sepsis, unspecified organism (principal); J18.9 Pneumonia, unspecified organism; J96.01 Acute respiratory failure with hypoxia; N39.0 Urinary tract infection, site not specified; I10 Essential (primary) hypertension; K21.9 Gastro-esophageal reflux disease without esophagitis; G25.81 Restless legs syndrome; E78.5 Hyperlipidemia, unspecified; R33.9 Retention of urine, unspecified; I45.10 Unspecified right bundle-branch block; R53.81 Other malaise; G62.9 Polyneuropathy, unspecified; Z91.013 Allergy to seafood; Z79.82 Long term (current) use of aspirin; Z79.899 Other long term (current) drug therapy; Z90.49 Acquired absence of other specified parts of digestive tract; Z98.51 Tubal ligation status; Z98.890 Other specified postprocedural states
CPT/HCPCS: 36415; 36416; 51701; 71045; 71275; 74177; 80048; 80053; 81001; 83605; 83690; 83735; 85025; 87040; 87077; 87086; 87186; 93005; 96374; J0360; J0696; J1650; J3490; J7050; Q9967